=== PATIENT | female | born 1960 ===

== ENCOUNTER → 2019-02-05 | Outpatient (REF) ==
--- NOTE | 2019-02-06 08:10 | REP ---
Clinical: Back pain. Technique: AP, lateral, coned-down views of the lumbosacral spine. Findings: Grade 1 anterolisthesis with spondylolysis and L5-S1 including endplate sclerosis, hypertrophic facet changes, and marginal osteophyte formation. Remainder examination demonstrates mild degenerative changes including endplate sclerosis as well as focal disc space narrowing at L4-5. Impression: 1. Grade 1 anterolisthesis and spondylolysis with moderate degenerative changes at L5-S1. 2. Endplate sclerosis and mild disc space narrowing at L4-5. Electronically Signed by Seth Contreras MD 02/06/2019 08:02 A
== END ==
LOC: M SMT 13:09
PROVIDERS: ATTEND Internal Medicine
DX: M51.36 Other intervertebral disc degeneration, lumbar region (principal)

== ENCOUNTER → 2022-01-24 | Outpatient (REF) | LOC: M PLAIMG 12:00 | PROVIDERS: ATTEND Internal Medicine | DX: M54.2 Cervicalgia (principal); M25.78 Osteophyte, vertebrae ==